=== PATIENT | male | born 1935 | race Caucasian/White ===

== ENCOUNTER 2021-01-15 12:32 | Outpatient (CLI) | payer MEDICARE ==
[2021-01-15 13:51] LABS: #Basophils 0.1 10x3/uL (0.0-0.2); #Eosinphils 0.5 10x3/uL (0.0-0.5); #Monocytes 0.7 10x3/uL (0.0-1.1); #Neutrophils 2.6 10x3/uL (1.5-8.4); %Basophils 0.9 % (0.0-2.0); %Eosinophils 8.8 % (0.0-6.0); %Lymphocytes 32.9 % (18.0-47.0); %Monocytes 11.6 % (0.0-10.0); %Neutrophils 45.6 % (40.0-75.0); Hemoglobin 13.2 g/dL (13.5-17.5); Mean Corpuscular Hemoglobin 29.6 pg (27.0-33.0); Mean Corpuscular Volume 92.4 fl (81.2-95.1); Mean Platelet Volume 10.9 fl (7.4-10.4); Platelet Count 177 10x3/uL (150-450); RBC Distribution Width 13.8 % (11.5-14.5); Red Blood Cell (RBC) Count 4.46 10x6/uL (4.32-5.72); White Blood Cell (WBC) Count 5.6 10x3/uL (3.5-10.5)
[2021-01-15 14:12] LABS: ALT (SGPT) 14 U/L (8-55); AST (SGOT) 17 U/L (5-34); Albumin 3.9 g/dL (3.4-4.8); Alkaline Phosphatase 58 U/L (40-110); Anion Gap 12 mmol/L (10-20); BUN (Urea Nitrogen) 18 mg/dL (8.4-25.7); Bilirubin, Total 0.6 mg/dL (0.2-1.2); Calc. Creatinine Clearance 0 mL/min (70-130); Calcium 8.8 mg/dL (7.8-10.44); Carbon Dioxide 28 mmol/L (23-31); Chloride 104 mmol/L (98-107); Globulin 2.3 g/dL (2.4-3.5); Glucose 181 mg/dL (83-110); Potassium 4.2 mmol/L (3.5-5.1); Protein, Total 6.2 g/dL (5.8-8.1); Sodium 140 mmol/L (136-145)
[2021-01-16 01:55] LABS: SARS-CoV-2 PCR by NAA Not Detected (NotDetected)
== END 2021-01-15 12:33 | disposition home or self-care (01) ==
LOC: LABBT 12:32
PROVIDERS: ATTEND Internal Medicine Cardiovascular Disease
DX: Z01.812 Encounter for preprocedural laboratory examination (principal); Z20.822 Contact with and (suspected) exposure to COVID-19
CPT/HCPCS: 80053; 85025; U0003; U0005; 87635

== ENCOUNTER 2021-01-18 08:41 | Day surgery (SDC) | payer MEDICARE ==
[2021-01-17 11:58] VITALS: BMI 32.3
[~2021-01-18 08:41] MED LIST: Iopamidol 370 76% 100 ML VIAL ONE
[2021-01-18] MEDS ORDERED: Diazepam 5 MG TAB ONE (10:58)
[2021-01-18] MEDS ORDERED: Diazepam 5 MG TAB PO SCH (11:15)
[2021-01-18] MEDS ORDERED: Sodium Chloride 0.9% 1,000 ML IV SCH (11:15)
[2021-01-18] MEDS ORDERED: Lidocaine 1% (PF) 30 ML VIAL ONE (11:34)
[2021-01-18] MEDS ORDERED: Midazolam HCl 2 mg/2 ml Vial ONE (12:05)
[2021-01-18] MEDS ORDERED: Fentanyl 100 MCG/2 ML VIAL ONE (12:05)
[2021-01-18] MEDS ORDERED: Heparin 10,000 UNITS/ 10 ML VIAL ONE (12:13)
[2021-01-18] MEDS ORDERED: Nitroglycerin 100MG/250ML BOT 250 ML ONE (12:24)
== END 2021-01-18 16:35 | disposition home or self-care (01) ==
LOC: CCL 08:41
PROVIDERS: ATTEND Internal Medicine Cardiovascular Disease
PROC: 4A023N7 Measurement of Cardiac Sampling and Pressure, Left Heart, Percutaneous Approach (ICD-10-PCS; principal; 2021-01-18)
PROC: B2111ZZ Fluoroscopy of Multiple Coronary Arteries using Low Osmolar Contrast (ICD-10-PCS; 2021-01-18)
DX: I25.10 Atherosclerotic heart disease of native coronary artery without angina pectoris (principal); R06.02 Shortness of breath; I10 Essential (primary) hypertension; E78.2 Mixed hyperlipidemia; E11.9 Type 2 diabetes mellitus without complications; M19.90 Unspecified osteoarthritis, unspecified site; Z85.46 Personal history of malignant neoplasm of prostate; Z87.891 Personal history of nicotine dependence; Z79.82 Long term (current) use of aspirin; Z79.84 Long term (current) use of oral hypoglycemic drugs; Z79.899 Other long term (current) drug therapy; Z88.1 Allergy status to other antibiotic agents; Z88.2 Allergy status to sulfonamides; Z88.5 Allergy status to narcotic agent; Z95.5 Presence of coronary angioplasty implant and graft
CPT/HCPCS: 76942; 85347; 93458; 93571; 99152; 99153; C1769; J0153; J1644; J2001; J2250; J3010; Q9967

== ENCOUNTER 2023-09-21 16:44 | Inpatient (IN) | payer MEDICARE ==
[~2023-09-21 16:44] MED LIST changes: -Iopamidol 370 76% 100 ML VIAL ONE; +Iopamidol-370 76% 500 ML MDV (1 ML CHARGE) ONE
[2023-09-21 18:12] LABS: #Basophils 0.1 thou/uL (0.0-0.2); #Eosinphils 0.1 thou/uL (0.0-0.7); #Monocytes 0.6 thou/uL (0.11-0.59); #Neutrophils 8.2 thou/uL (1.40-6.50); %Basophils 0.5 % (0.0-1.0); %Eosinophils 0.7 % (0.0-10.0); %Lymphocytes 11.2 % (21.0-51.0); %Monocytes 5.6 % (0.0-10.0); %Neutrophils 81.7 % (42.0-75.0); Hematocrit 46.6 % (42.0-52.0); Hemoglobin 15.1 g/dL (14.0-18.0); Mean Corpuscular HGB CONC 32.4 g/dL (32.0-36.0); Mean Corpuscular Hemoglobin 30.2 pg (27.0-31.0); Mean Corpuscular Volume 93.2 fl (78.0-98.0); Mean Platelet Volume 10.4 fL (7.4-10.4); Platelet Count 161 10x3/uL (130-400)
[2023-09-21 18:39] LABS: ALT (SGPT) 11 U/L (8-55); AST (SGOT) 19 U/L (5-34); Albumin 4.4 g/dL (3.4-4.8); Alkaline Phosphatase 43 U/L (40-110); Anion Gap 16 mmol/L (10-20); BUN (Urea Nitrogen) 19 mg/dL (8.4-25.7); Bilirubin, Total 1.6 mg/dL (0.2-1.2); Calc. Creatinine Clearance 0 mL/min (70-130); Calcium 9.8 mg/dL (7.8-10.44); Carbon Dioxide 25 mmol/L (23-31); Chloride 102 mmol/L (98-107); Estimated GFR 60; Globulin 2.1 g/dL (2.4-3.5); Glucose 156 mg/dL (83-110); Potassium 3.8 mmol/L (3.5-5.1); Protein, Total 6.5 g/dL (5.8-8.1); Sodium 139 mmol/L (136-145)
[2023-09-21 18:43] LABS: Troponin I Less than 0.010 ng/mL (< 0.028)
[2023-09-21 18:51] LABS: Bacteria/HPF None Seen HPF (None Seen); Bilirubin Negative (Negative); Blood, Urine Trace (Negative); CAUTI Indications for Culture Dysuria,urgency,freq; Clarity Clear (Clear); Glucose, Urine (Dipstick) Normal (Negative); Ketone, Urine 40 mg/dL (Negative); Leukocyte Negative Leu/uL (Negative); Nitrite Negative (Negative); Protein, Urine (Dipstick) 30 mg/dL (Neg-Trace); Specific Gravity, Urine 1.019 (1.002-1.036); Squamous Epithelial None Seen HPF (0-3); Urobilinogen Normal mg/dL (Less than 2); WBC/HPF 0-3 HPF (0-3)
[2023-09-21 18:53] LABS: Urine Culture Reflex No No
[2023-09-21] MEDS ORDERED: Ondansetron PF 4 MG/2 ML Vial ONE (20:52)
[2023-09-21] MEDS ORDERED: Dextrose 5% in Water 1,000 ML IV PRN (21:50)
[2023-09-21] MEDS ORDERED: Glucagon 1 MG/ML KIT IM PRN (21:50)
[2023-09-21] MEDS ORDERED: Dextrose 50% Abboject 50 ML SYRINGE SLOW IVP PRN (21:50)
[2023-09-21 22:10] LABS: Troponin I Less than 0.010 ng/mL (< 0.028)
[2023-09-21] MEDS ORDERED: Acetaminophen 325 MG TAB PO PRN (22:29)
[2023-09-21 23:01] VITALS: BMI 35.1
[2023-09-22] MEDS ORDERED: hydrALAZINE 20 MG/ML VIAL SLOW IVP PRN (01:37)
[2023-09-22 02:03] LABS: Phosphorus 2.9 mg/dL (2.3-4.7)
[2023-09-22 02:10] LABS: Troponin I Less than 0.010 ng/mL (< 0.028)
[2023-09-22 04:14] LABS: #Eosinphils 0.1 thou/uL (0.0-0.7); #Monocytes 0.8 thou/uL (0.11-0.59); #Neutrophils 5.3 thou/uL (1.40-6.50); %Basophils 0.5 % (0.0-1.0); %Eosinophils 1.1 % (0.0-10.0); %Lymphocytes 21.2 % (21.0-51.0); %Monocytes 10.2 % (0.0-10.0); %Neutrophils 66.7 % (42.0-75.0); Hematocrit 41.6 % (42.0-52.0); Mean Corpuscular HGB CONC 33.7 g/dL (32.0-36.0); Mean Corpuscular Hemoglobin 30.7 pg (27.0-31.0); Mean Corpuscular Volume 91.2 fl (78.0-98.0); Mean Platelet Volume 10.4 fL (7.4-10.4); Platelet Count 155 10x3/uL (130-400); Red Blood Cell (RBC) Count 4.56 mill/uL (4.70-6.10)
[2023-09-22 04:45] LABS: ALT (SGPT) 12 U/L (8-55); AST (SGOT) 16 U/L (5-34); Albumin 3.6 g/dL (3.4-4.8); Alkaline Phosphatase 36 U/L (40-110); Anion Gap 14 mmol/L (10-20); BUN (Urea Nitrogen) 23 mg/dL (8.4-25.7); Bilirubin, Total 1.5 mg/dL (0.2-1.2); Calc. Creatinine Clearance 89 mL/min (70-130); Carbon Dioxide 27 mmol/L (23-31); Chloride 104 mmol/L (98-107); Estimated GFR 72; Glucose 137 mg/dL (83-110); Potassium 3.9 mmol/L (3.5-5.1); Protein, Total 5.6 g/dL (5.8-8.1); Sodium 141 mmol/L (136-145)
[2023-09-22] MEDS: Allopurinol 300 MG TAB PO SCH (08:46)
[2023-09-22] MEDS: Hydrochlorothiazide 25 MG TAB PO SCH (08:46)
[2023-09-22] MEDS: FLUoxetine HCl 20 MG CAP PO SCH (08:46)
[2023-09-22] MEDS: Potassium Citrate 10 MEQ TAB PO SCH (08:46)
[2023-09-22] MEDS ORDERED: FLU VACC QS2023(65UP)/MF59C/PF 60 MCG/0.5 ML SYRINGE IM ONE (09:00)
[2023-09-22 09:45] LABS: Hemoglobin A1c 6.6 % (4.0-6.0)
[2023-09-22] MEDS: Amlodipine 10 MG TAB PO SCH (11:07)
[2023-09-22] MEDS ORDERED: Enoxaparin 120 MG/0.8 ML SYRINGE SC SCH (11:45)
[2023-09-22] MEDS: Enoxaparin 120 MG/0.8 ML SYRINGE SC SCH (20:35)
[2023-09-23 04:44] LABS: #Basophils 0.1 thou/uL (0.0-0.2); #Eosinphils 0.4 thou/uL (0.0-0.7); #Monocytes 0.7 thou/uL (0.11-0.59); #Neutrophils 3.1 thou/uL (1.40-6.50); %Basophils 1.2 % (0.0-1.0); %Eosinophils 6.3 % (0.0-10.0); %Lymphocytes 36.3 % (21.0-51.0); %Monocytes 10.5 % (0.0-10.0); %Neutrophils 45.4 % (42.0-75.0); Hematocrit 44.3 % (42.0-52.0); Hemoglobin 14.6 g/dL (14.0-18.0); Mean Corpuscular Hemoglobin 30.4 pg (27.0-31.0); Mean Corpuscular Volume 92.1 fl (78.0-98.0); Mean Platelet Volume 10.6 fL (7.4-10.4); Platelet Count 151 10x3/uL (130-400); RBC Distribution Width 14.1 % (11.5-14.5); Red Blood Cell (RBC) Count 4.81 mill/uL (4.70-6.10); White Blood Cell (WBC) Count 6.8 10x3/uL (4.8-10.8)
[2023-09-23 05:25] LABS: ALT (SGPT) 11 U/L (8-55); AST (SGOT) 18 U/L (5-34); Albumin 3.7 g/dL (3.4-4.8); Alkaline Phosphatase 39 U/L (40-110); Anion Gap 12 mmol/L (10-20); BUN (Urea Nitrogen) 22 mg/dL (8.4-25.7); Calc. Creatinine Clearance 87 mL/min (70-130); Calcium 8.9 mg/dL (7.8-10.44); Carbon Dioxide 27 mmol/L (23-31); Chloride 103 mmol/L (98-107); Estimated GFR 70; Glucose 89 mg/dL (83-110); Potassium 3.5 mmol/L (3.5-5.1); Protein, Total 5.7 g/dL (5.8-8.1); Sodium 138 mmol/L (136-145)
[2023-09-23] MEDS: Enoxaparin 120 MG/0.8 ML SYRINGE SC SCH (07:41)
[2023-09-23 07:42] LABS: Magnesium 1.9 mg/dL (1.6-2.6); Phosphorus 2.7 mg/dL (2.3-4.7)
[2023-09-23] MEDS ORDERED: Potassium Chloride 20 MEQ TAB PO SCH (08:00)
[2023-09-23] MEDS: Potassium Citrate 10 MEQ TAB PO SCH (08:56)
[2023-09-23] MEDS: Amlodipine 10 MG TAB PO SCH (09:31)
[2023-09-23] MEDS: Allopurinol 300 MG TAB PO SCH (09:33)
[2023-09-23] MEDS: FLUoxetine HCl 20 MG CAP PO SCH (09:33)
[2023-09-23] MEDS: Hydrochlorothiazide 25 MG TAB PO SCH (09:33)
[2023-09-23] MEDS: metFORMIN 500 MG TAB PO SCH (20:02)
[2023-09-23] MEDS: Tamsulosin HCl 0.4 MG CAP PO SCH (20:02)
[2023-09-23] MEDS ORDERED: METFORMIN HCL 500 MG PO SCH (21:00)
[2023-09-23] MEDS ORDERED: Enoxaparin 120 MG/0.8 ML SYRINGE SC SCH (21:15)
[2023-09-24 04:17] LABS: #Basophils 0.1 thou/uL (0.0-0.2); #Eosinphils 0.4 thou/uL (0.0-0.7); #Monocytes 0.9 thou/uL (0.11-0.59); #Neutrophils 4.5 thou/uL (1.40-6.50); %Basophils 0.8 % (0.0-1.0); %Eosinophils 5.5 % (0.0-10.0); %Monocytes 11.8 % (0.0-10.0); %Neutrophils 57.8 % (42.0-75.0); Hematocrit 43.8 % (42.0-52.0); Hemoglobin 14.6 g/dL (14.0-18.0); Mean Corpuscular HGB CONC 33.3 g/dL (32.0-36.0); Mean Corpuscular Hemoglobin 30.2 pg (27.0-31.0); Mean Corpuscular Volume 90.7 fl (78.0-98.0); Mean Platelet Volume 10.8 fL (7.4-10.4); Platelet Count 161 10x3/uL (130-400); RBC Distribution Width 13.7 % (11.5-14.5); Red Blood Cell (RBC) Count 4.83 mill/uL (4.70-6.10); White Blood Cell (WBC) Count 7.8 10x3/uL (4.8-10.8)
[2023-09-24 08:57] LABS: AST (SGOT) 17 U/L (5-34); Albumin 3.6 g/dL (3.4-4.8); Alkaline Phosphatase 40 U/L (40-110); Anion Gap 12 mmol/L (10-20); BUN (Urea Nitrogen) 18 mg/dL (8.4-25.7); Bilirubin, Total 1.6 mg/dL (0.2-1.2); Calc. Creatinine Clearance 109 mL/min (70-130); Calcium 8.9 mg/dL (7.8-10.44); Carbon Dioxide 26 mmol/L (23-31); Chloride 102 mmol/L (98-107); Estimated GFR 85; Globulin 2.1 g/dL (2.4-3.5); Glucose 94 mg/dL (83-110); Potassium 3.6 mmol/L (3.5-5.1); Protein, Total 5.7 g/dL (5.8-8.1); Sodium 136 mmol/L (136-145)
[2023-09-24 08:58] LABS: ALT (SGPT) 11 U/L (8-55)
[2023-09-24] MEDS: Allopurinol 300 MG TAB PO SCH (09:25)
[2023-09-24] MEDS: Amlodipine 10 MG TAB PO SCH (09:25)
[2023-09-24] MEDS: FLUoxetine HCl 20 MG CAP PO SCH (09:25)
[2023-09-24] MEDS: Hydrochlorothiazide 25 MG TAB PO SCH (09:26)
[2023-09-24] MEDS: Potassium Citrate 10 MEQ TAB PO SCH (09:26)
[2023-09-24] MEDS ORDERED: Iopamidol 370 76% 100 ML VIAL ONE (11:33)
[2023-09-24] MEDS ORDERED: Midazolam HCl 2 mg/2 ml Vial ONE ×2 (12:56→13:44)
[2023-09-24] MEDS ORDERED: Heparin 10,000 UNITS/ 10 ML VIAL ONE (12:56)
[2023-09-24] MEDS ORDERED: fentaNYL 50 mcg/mL 1 mL Vial ONE ×2 (12:56→13:43)
[2023-09-24] MEDS ORDERED: CEFAZOLIN 2 GM VIAL ONE (12:56)
[2023-09-24] MEDS ORDERED: Lidocaine 1% (PF) 30 ML VIAL ONE (13:00)
[2023-09-24] MEDS ORDERED: Propofol 500 MG/50 ML VIAL ONE (13:44)
[2023-09-24] MEDS ORDERED: KETAMINE 100 MG/ML (5ML VIAL) ONE (13:44)
[2023-09-24] MEDS ORDERED: Protamine Sulfate 50 MG/5 ML VIAL ONE (14:46)
[2023-09-24] MEDS: Tamsulosin HCl 0.4 MG CAP PO SCH (19:54)
[2023-09-24] MEDS: metFORMIN 500 MG TAB PO SCH (19:54)
[2023-09-25 04:39] LABS: #Eosinphils 0.3 thou/uL (0.0-0.7); #Monocytes 0.9 thou/uL (0.11-0.59); #Neutrophils 3.8 thou/uL (1.40-6.50); %Basophils 0.6 % (0.0-1.0); %Eosinophils 5.2 % (0.0-10.0); %Lymphocytes 22.6 % (21.0-51.0); %Monocytes 14.1 % (0.0-10.0); %Neutrophils 57.2 % (42.0-75.0); Hematocrit 42.7 % (42.0-52.0); Hemoglobin 14.3 g/dL (14.0-18.0); Mean Corpuscular HGB CONC 33.5 g/dL (32.0-36.0); Mean Corpuscular Hemoglobin 30.6 pg (27.0-31.0); Mean Corpuscular Volume 91.2 fl (78.0-98.0); Platelet Count 151 10x3/uL (130-400); RBC Distribution Width 13.6 % (11.5-14.5); Red Blood Cell (RBC) Count 4.68 mill/uL (4.70-6.10); White Blood Cell (WBC) Count 6.6 10x3/uL (4.8-10.8)
[2023-09-25 04:47] LABS: ALT (SGPT) 11 U/L (8-55); AST (SGOT) 18 U/L (5-34); Albumin 3.6 g/dL (3.4-4.8); Alkaline Phosphatase 44 U/L (40-110); Anion Gap 11 mmol/L (10-20); BUN (Urea Nitrogen) 21 mg/dL (8.4-25.7); Bilirubin, Total 1.7 mg/dL (0.2-1.2); Calc. Creatinine Clearance 105 mL/min (70-130); Carbon Dioxide 27 mmol/L (23-31); Chloride 103 mmol/L (98-107); Estimated GFR 84; Glucose 104 mg/dL (83-110); Potassium 3.7 mmol/L (3.5-5.1); Protein, Total 5.6 g/dL (5.8-8.1); Sodium 137 mmol/L (136-145)
[2023-09-25] MEDS: FLUoxetine HCl 20 MG CAP PO SCH (08:24)
[2023-09-25] MEDS: Allopurinol 300 MG TAB PO SCH (08:24)
[2023-09-25] MEDS: Apixaban 2.5 MG TAB PO SCH ×2 (09:47→20:16)
[2023-09-25] MEDS: HumaLOG 300 UNITS/3 ML VIAL SC PRN ×2 (12:32→16:49)
[2023-09-25] MEDS: Tamsulosin HCl 0.4 MG CAP PO SCH (20:16)
[2023-09-25] MEDS: metFORMIN 500 MG TAB PO SCH (20:16)
[2023-09-26 05:02] LABS: #Basophils 0.1 thou/uL (0.0-0.2); #Eosinphils 0.5 thou/uL (0.0-0.7); #Monocytes 0.9 thou/uL (0.11-0.59); #Neutrophils 3.5 thou/uL (1.40-6.50); %Lymphocytes 27.6 % (21.0-51.0); %Monocytes 13.4 % (0.0-10.0); %Neutrophils 50.9 % (42.0-75.0); Hemoglobin 14.1 g/dL (14.0-18.0); Mean Corpuscular HGB CONC 33.6 g/dL (32.0-36.0); Mean Corpuscular Hemoglobin 30.8 pg (27.0-31.0); Mean Corpuscular Volume 91.7 fl (78.0-98.0); Mean Platelet Volume 11.6 fL (7.4-10.4); Platelet Count 156 10x3/uL (130-400); RBC Distribution Width 13.7 % (11.5-14.5); Red Blood Cell (RBC) Count 4.58 mill/uL (4.70-6.10); White Blood Cell (WBC) Count 6.9 10x3/uL (4.8-10.8)
[2023-09-26 05:29] LABS: ALT (SGPT) 11 U/L (8-55); AST (SGOT) 19 U/L (5-34); Albumin 3.5 g/dL (3.4-4.8); Alkaline Phosphatase 43 U/L (40-110); Anion Gap 13 mmol/L (10-20); BUN (Urea Nitrogen) 25 mg/dL (8.4-25.7); Bilirubin, Total 1.2 mg/dL (0.2-1.2); Calc. Creatinine Clearance 101 mL/min (70-130); Calcium 8.7 mg/dL (7.8-10.44); Carbon Dioxide 26 mmol/L (23-31); Chloride 102 mmol/L (98-107); Estimated GFR 83; Glucose 108 mg/dL (83-110); Potassium 3.8 mmol/L (3.5-5.1); Protein, Total 5.5 g/dL (5.8-8.1); Sodium 137 mmol/L (136-145)
[2023-09-26] MEDS: Apixaban 2.5 MG TAB PO SCH (08:21)
[2023-09-26] MEDS: Allopurinol 300 MG TAB PO SCH (08:21)
[2023-09-26] MEDS: FLUoxetine HCl 20 MG CAP PO SCH (08:21)
[2023-09-26 11:46] VITALS: TEMP 98.6
[2023-09-26 12:28] VITALS: BP 111/62
== END 2023-09-26 15:47 | disposition home or self-care (01) | DRG 229 ==
LOC: ERS 16:44 → 2NO 20:52
PROVIDERS: ADMIT Family Medicine; ATTEND Family Medicine
PROC: 02HK3NZ Insertion of Intracardiac Pacemaker into Right Ventricle, Percutaneous Approach (ICD-10-PCS; principal; 2023-09-24)
DX: I48.0 Paroxysmal atrial fibrillation (principal); Z00.6 Encounter for examination for normal comparison and control in clinical research program; K86.2 Cyst of pancreas; N17.9 Acute kidney failure, unspecified; R55 Syncope and collapse; R31.9 Hematuria, unspecified; I95.9 Hypotension, unspecified; R00.1 Bradycardia, unspecified; I25.10 Atherosclerotic heart disease of native coronary artery without angina pectoris; M10.9 Gout, unspecified; E78.5 Hyperlipidemia, unspecified; N40.0 Benign prostatic hyperplasia without lower urinary tract symptoms; F32.9 Major depressive disorder, single episode, unspecified; N18.2 Chronic kidney disease, stage 2 (mild); E11.22 Type 2 diabetes mellitus with diabetic chronic kidney disease; E04.1 Nontoxic single thyroid nodule; I12.9 Hypertensive chronic kidney disease with stage 1 through stage 4 chronic kidney disease, or unspecified chronic kidney disease; E87.6 Hypokalemia; C61 Malignant neoplasm of prostate; Z90.89 Acquired absence of other organs; Z79.82 Long term (current) use of aspirin; Z88.5 Allergy status to narcotic agent; Z88.2 Allergy status to sulfonamides; Z95.5 Presence of coronary angioplasty implant and graft; Z88.8 Allergy status to other drugs, medicaments and biological substances; Z98.890 Other specified postprocedural states; Z79.899 Other long term (current) drug therapy; Z79.84 Long term (current) use of oral hypoglycemic drugs; Z88.1 Allergy status to other antibiotic agents
CPT/HCPCS: 33207; 36415; 36416; 70450; 71045; 71260; 72125; 74177; 80053; 80061; 81001; 83036; 83735; 84100; 84443; 84484; 85025; 93005; 93010; 93306; 93798; 96374; C1760; C1769; C1894; J1644; J1650; J2001; J2250; J2405; J2704; J2720; J3010; Q9967